=== PATIENT | female | born 1935 | race Caucasian/White ===

== ENCOUNTER → 2023-12-13 11:34 | Outpatient (REF) | payer OTHER, SELFPAY ==
[2023-12-13 13:38] LABS: % Basophils 1.2 % (0-2); % Eosinophils 3.7 % (0-6); % Immature Granulocytes 0.3 % (0-0.5); % Lymphocytes 29.4 % (20.5-51.1); % Monocytes 8.9 % (1.7-9.3); % Neutrophils 56.5 % (42.2-75.2); Absolute Basophils 0.1 10^3/uL (0-0.2); Absolute Eosinophils 0.3 10^3/uL (0-0.7); Absolute Lymphocytes 2.2 10^3/uL (1.2-3.4); Absolute Monocytes 0.7 10^3/uL (0.1-0.6); Absolute Neutrophils 4.3 10^3/uL (1.4-6.5); Hematocrit 40.2 % (37.0-47.0); Mean Corp Hgb Conc. 32.3 g/dL (33.0-37.0); Mean Corpuscular Volume 83.4 fL (81.0-99.0); Mean Platelet Volume 9.5 fL (7.4-10.4); Nucleated Red Blood Cells % 0 %; Platelet Count 275 10^3/uL (130-400); Red Blood Cell Count 4.82 10^6/uL (4.20-5.40); Red Cell Dist. Width 15.3 % (11.5-14.5); White Blood Cell Count 7.6 10^3/uL (4.8-10.8)
[2023-12-13 13:53] LABS: ALT (SGPT) 33 U/L (0-35); AST (SGOT) 34 U/L (14-36); Albumin 4.4 g/dl (3.5-5.0); Alkaline Phosphatase 86 U/L (38-126); Blood Urea Nitrogen 24 mg/dl (7-17); Calcium 9.9 mg/dl (8.4-10.2); Carbon Dioxide 26 mmol/L (22-30); Chloride 100 mmol/L (98-107); Glucose 96 mg/dl (70-99); HDL Cholesterol 76 mg/dl; LDL Cholesterol, Calculated 134 mg/dl; Sodium 133 mmol/L (135-145); Total Bilirubin 0.5 mg/dl (0.2-1.3); Total Cholesterol 229 mg/dl (50-199); Total Protein 7.3 g/dl (6.3-8.2); Triglyceride 99 mg/dl (10-149); Very Low Density Lipoprotein 19 mg/dl (0-30); eGFR 53.85
[2023-12-13 14:21] LABS: TSH Reflex To Free T4 2.01 uIU/ml (0.47-4.68)
== END ==
LOC: OLABWPC 11:34
PROVIDERS: ATTENDING PHYSICIAN Internal Medicine
DX: I10 Essential (primary) hypertension (principal); K21.9 Gastro-esophageal reflux disease without esophagitis; K86.81 Exocrine pancreatic insufficiency; Z85.3 Personal history of malignant neoplasm of breast
CPT/HCPCS: 36415; 80053; 80061; 84443; 85025

== ENCOUNTER 2024-01-08 13:19 | Inpatient (IN) | payer OTHER, SELFPAY ==
[2024-01-05] VITALS (21 sets, daily range): BP systolic 99–161; BP diastolic 59–87; PULSE 75–78; O2SAT 98; BMI 20.7; BMI 20.6
--- NOTE | 2024-01-05 04:06 | ED.GENMED ---
History of Present Illness
<JUAN Freire - Last Filed: 01/05/24 06:38>
General
Chief Complaint: Musculo-Skeletal Complaint
Source: patient and records
Exam Limitations: none
Time Seen by Provider: 01/05/24 03:59
Travel History
Have you had any contact with someone who has COVID-19?: No
Do you have any symptoms of coronavirus? Fever > 100 degrees, chills, cough, shortness of breath, sore throat, loss of taste or smell, muscle aches, or headache?: No
History of Present Illness
History of Present Illness:
87-year-old female from [facility] with history of recurrent right hip dislocations, symptomatic hyponatremia, recurrent falls, prior right hip replacement, dementia, right lower extremity DVT on Xarelto, HTN,
anxiety/depression BIBA with pain in the right hip that occurred just prior to arrival. Pt was on the toilet and reached for toilet paper when she heard a pop in her right hip. Denies fall or trauma to the hip.
Last dislocation was on 08/06/23 which was reduced under moderated sedation. Pt had revision of R hip total arthroplasty on 08/09/[address] Farias.
Past History
<JUAN Freire - Last Filed: 01/05/24 06:38>
Past History
ED Past Medical History: Cancer (Breast), COPD, GERD, HTN, Hypercholesterolemia, Other (Parathyroidectomy) and Other (DVT on Xarelto)
ED Past Surgical History: Gynecological (Bilateral mastectomy) and Orthopedic (Right hip replaced 2007)
Social History
Tobacco: Former smoker
Alcohol: None
Drug: None
Living: shelter
Review of Systems
<JUAN Freire - Last Filed: 01/05/24 06:38>
Review of Systems
Allergies reviewed?: Yes
All Other Systems: ROS reviewed and negative except as documented in HPI and ROS
Constitutional: Reports no symptoms
EENT: Reports no symptoms
Respiratory: Reports no symptoms
Cardiac: Reports no symptoms
ABD/GI: Reports no symptoms
: Reports no symptoms
Musculoskeletal: Reports joint pain
Skin: Reports no symptoms
Neurological: Reports no symptoms
Phy Exam
<JUAN Freire - Last Filed: 01/05/24 06:38>
General Physical Exam
General Presentation: well appearing and no apparent distress
General age: appears stated age
General Skin: warm and dry
General Habitus: normal
General Mental: alert
General Hydration: appears well hydrated
Cardiovascular Exam
Cardiovascular Exam: regular rate/rhythm, no edema, no gallop, no murmur and normal peripheral pulses
Pulmonary Exam
Pulmonary Exam: lungs clear, no respiratory distress, no rales, no crackles, no rhonchi, no wheezing and no cough
Neurological Exam
Neurological Exam: alert and oriented x3
Musculoskeletal Exam
Musculoskeletal Exam: neuro vasc intact and other (No R hip tenderness to palpation. RLE shortened and slightly internally rotated. Pain with range of motion. )
Skin Exam
Skin Exam: normal color and warm/dry
Psychiatric Exam
Psychiatric Exam: normal mood/affect
Course
<JUAN Freire - Last Filed: 01/05/24 06:38>
Orders/Labs/Results
Orders:
Orders
01/05/24 03:51
CR Hip - RT w/wo Pel 2-3 Vw* Urgent
Comment:
Reason For Exam: right leg shortened, prosthetic hip
Include a pelvis x-ray?: Yes
01/05/24 04:35
Propofol [Diprivan] 20 ml .ROUTE .STK-MED
01/05/24 04:58
Hip, Right 1 View [CR Hip - RT without Pel 1 Vw] Urgent
Comment:
Reason For Exam: portable post reduction
01/05/24 05:48
Hip, Right 2-3 Views [CR Hip - RT w/wo Pel 2-3 Vw*] Urgent
Comment:
Reason For Exam: questionable incomplete reduction
Include a pelvis x-ray?: No
01/05/24 06:02
Admit/Transfer Patient As Directed
Co-Sign Provider:
Level of Care: Observation services
Assign to:: Medical/Surgical
Physician / Group: htay
Diagnosis: Right hip prosthetic joint recurrent dislocation
Reason for Hospitalization: Right hip prosthetic joint recurrent dislocation
Acute gait dysfunction
01/05/24 06:04
Code Status As Directed
Resuscitation Status: Full Code
01/05/24 06:21
BMP [Basic Metabolic Panel] IN AM
CBC/No Diff [Complete Blood Count/No Diff] IN AM
Vital Signs
Initial and Last Documented VS:
Initial Vital Signs
Temp Pulse Resp BP Pulse Ox
97.6 F 71 16 161/76 98
01/05/24 03:46 01/05/24 03:46 01/05/24 03:46 01/05/24 03:46 01/05/24 03:46
Last Documented Vital Signs
Temp Pulse Resp BP Pulse Ox
97.6 F 67 12 144/65 100
01/05/24 03:46 01/05/24 05:30 01/05/24 05:30 01/05/24 05:25 01/05/24 05:30
<Deepali Carlson, DO - Last Filed: 01/05/24 06:45>
Orders/Labs/Results
Orders:
Orders
01/05/24 03:51
CR Hip - RT w/wo Pel 2-3 Vw* Urgent
Comment:
Reason For Exam: right leg shortened, prosthetic hip
Include a pelvis x-ray?: Yes
01/05/24 04:35
Propofol [Diprivan] 20 ml .ROUTE .STK-MED
01/05/24 04:58
Hip, Right 1 View [CR Hip - RT without Pel 1 Vw] Urgent
Comment:
Reason For Exam: portable post reduction
01/05/24 05:48
Hip, Right 2-3 Views [CR Hip - RT w/wo Pel 2-3 Vw*] Urgent
Comment:
Reason For Exam: questionable incomplete reduction
Include a pelvis x-ray?: No
01/05/24 06:02
Admit/Transfer Patient As Directed
Co-Sign Provider:
Level of Care: Observation services
Assign to:: Medical/Surgical
Physician / Group: htay
Diagnosis: Right hip prosthetic joint recurrent dislocation
Reason for Hospitalization: Right hip prosthetic joint recurrent dislocation
Acute gait dysfunction
01/05/24 06:04
Code Status As Directed
Resuscitation Status: Full Code
01/05/24 06:21
BMP [Basic Metabolic Panel] IN AM
CBC/No Diff [Complete Blood Count/No Diff] IN AM
Vital Signs
Initial and Last Documented VS:
Initial Vital Signs
Temp Pulse Resp BP Pulse Ox
97.6 F 71 16 161/76 98
01/05/24 03:46 01/05/24 03:46 01/05/24 03:46 01/05/24 03:46 01/05/24 03:46
Last Documented Vital Signs
Temp Pulse Resp BP Pulse Ox
97.6 F 67 12 144/65 100
01/05/24 03:46 01/05/24 05:30 01/05/24 05:30 01/05/24 05:25 01/05/24 05:30
Procedures
<JUAN Freire - Last Filed: 01/05/24 06:38>
Moderate Sedation
ASA Risk Score: Class II
Chart and allergies reviewed: Yes
Consent for anesthesia obtained: Yes
Time out completed (validating right patient & procedure): Yes
Moderate Sedation Start Time(when first medication is given): 04:45
History of difficult intubation: No
Airway free of obstruction: Yes
Patient has a gag reflex: Yes
Patient is able to open mouth: Yes
Patient has no dentures: Yes
Patient has no loose teeth: Yes
Medication administered by Provider during Moderate Sedation: IV Propofol (mg)
Total dose administered: 45
Time drug administered: 04:45
Moderate Sedation Procedure End Time: 04:55
Joint/Fracture Reduction
Right Hip:
Indication for procedure:: prosthetic hip dislocation
Procedure completed by: myself and Dr. Carlson
Consent form signed: Yes
Joint reduced: with anesthesia sedation
Anesthesia/sedation: Moderate sedation
Injury was: closed
Further treatement: needs further treatment (questionable mild subluxation/not complete reduction of femoral head into acetabulum, orthopedics aware)
Post reduction exam: stable
Capillary Refill: normal
Normal distal neurovascular exam?: Yes
<JUAN Freire - Last Filed: 01/05/24 06:38>
MDM/Problems Addressed
Differential Diagnosis Includes:
R hip fracture, R hip dislocation
MDM/Problems Addressed:
88 year old female BIBA with R hip pain.
Chronic conditions affecting care: HTN, COPD, Psychiatric illness (Anxiety) and Cancer
<JAUN Freire - Last Filed: 01/05/24 06:38>
*Critical Care Note
Total Time (30-74mins, 75-104mins- exclusive of procedures): Not Applicable
<Deepali Carlson DO - Last Filed: 01/05/24 06:45>
*Radiology
Radiology exam reviewed: preliminary read by ED provider (Initial x-ray reveals prosthetic right hip dislocation. Postreduction film shows successful reduction, no evidence of fracture)
*Pulse Oximetry
Patient hypoxic: no
*Software Configuration Specialist Interpretation
Rate: normal
Interpretation: normal
Rhythm: sinus
ED Attending Note
<JUAN Freire - Last Filed: 01/05/24 06:38>
-
Portions of this chart may have been created with voice recognition software.� Occasional wrong word or��sound alike� substitutions may have occurred due to the inherent limitations of voice recognition software.
<Deepali Carlson DO - Last Filed: 01/05/24 06:45>
ED Attending Note
Patient seen and examined by attending physician: Yes
I performed the substantive portion of visit, reviewed & personally made and approve the management plan that is documented in note by myself or CHRIS.: Yes
I performed a history and physical exam of patient and discussed management with resident, I reviewed resident's note and agree with documented findings and plan of care.: Yes
ED Attending Note:
This is an 88-year-old woman who resides at a local assisted living facility. She has history of recurrent right prosthetic hip dislocations, most recently August of this year due to recurrent dislocation she underwent prosthetic hip revision this
August by Dr. Farias undergoing ball head exchange as well as constrained liner placement. She has done well postoperatively until tonight when she bent forward while sitting on the toilet and felt a pop and then pain in her right hip. She did
not fall. No head injury. She denies back pain, denies weakness or numbness.
She arrives via EMS.
GENERAL: 88-year-old somewhat frail appearing woman is bright and alert, pleasant, appears in no acute distress.
EYE: anicteric
NECK: Supple, nontender, no meningismus, no significant adenopathy.
ENT: oral mucosa is moist. No rhinorrhea.
CARDIAC: Regular rate and rhythm. no murmur.
LUNGS: Clear breath sounds bilaterally, no acute respiratory distress, no wheezes/rales/rhonchi
ABDOMEN: Soft, nondistended, without focal tenderness, normoactive BS.
NEUROLOGICAL: Alert and oriented x3, no focal neuro deficits.
SKIN: Warm and dry, normal color, skin intact. No rash.
MUSCULOSKELETAL: No C/C/E. peripheral pulses are full and equal b/l. Right lower extremity is internally rotated and shortened with moderate pain about the right hip with attempted range of motion. No palpable tenderness to the hip. There is no
tenderness to the thigh nor knee nor lower leg.
PSYCH: Normal and appropriate interaction.
Concern for prosthetic hip dislocation versus periprosthetic fracture. Will check x-ray.
Patient denies fall or head injury. No indication for CT of the head.
01/05/2024 0459 AM
X-ray reveals periprosthetic hip dislocation.
Hip successfully manually reduced under moderate sedation.
No complications during procedure.
Awaiting postreduction film.
01/05/2024 0531 AM
Postreduction film reveals either successful reduction versus near complete reduction as the femoral head appears to be not completely seated into the acetabulum. No evidence of fracture.
Orthopedics, Dr. Whitney aware and requests additional films/lateral films to further assess.
Patient is awake and alert. Denies pain.
She has been placed in a knee immobilizer.
She resides in independent living at [facility] and upon review of records it seems that patient has a bit of dementia, memory issues and thus frequently forgets to keep knee immobilizer in place, forgets her hip precautions and thus
suffers recurrent/repeated hip dislocations.
As such, for safety will plan to admit to hospitalist service with case management and PT evaluation. She will require close monitoring for safety and at the least half-way level care.
01/05/2024 0644 AM
Lateral films show femoral head adequately lined up within the acetabulum. On the AP film it does continue to show concern for potential minimal subluxation. Patient continues to deny pain.
Orthopedics will evaluate but lateral films and clinical exam are reassuring.
Discharge Plan
Departure
Patient Disposition: Admit
Date of Disposition: 01/05/24
Time of Disposition: 05:41
Admit to: Med/Surg
Admit to doctor: Chayo
Presentation/result/management discussed w/ accepting MD/DO: Hospitalist
Patient with high blood pressure during this ER visit?: No
Condition: Good
Discharge Problem:
Dislocation of internal right hip prosthesis, Ambulatory dysfunction
Interventions
Interventions:
*Risk Screen - Suicide Last Done: 01/05/24 03:46
*General Assessment Last Done: 01/05/24 03:46
*Neglect/Abuse Screening Last Done: 01/05/24 03:46
ED-Musculoskeletal Assessment Last Done: 01/05/24 03:50
--- NOTE | 2024-01-05 04:59 | EDRN ---
right knee immobilizer applied to right leg
--- NOTE | 2024-01-05 05:56 | HPS.HSE ---
Addendum entered and electronically signed by José Domingo MD 01/05/24 06:15:
Addendum:
Will keep NPO till post reduction film is clear by Ortho or radiologist
Original Note:
Family Physician
-
Family Physician: Nelly Gracia
Chief Complaint
-
Rt Hip pain suspect recurrent dislocation
History of Present Illness
87F Res [facility] independent living HX Anxiety/depression, HX recurrent right hip dislocations, symptomatic hyponatremia, recurrent falls, prior right hip replacement, dementia, right lower extremity DVT on Xarelto [facility] pain in the right hip that
occurred just prior to arrival while she was on the toilet and reached for toilet paper when she heard a pop in her right hip.
Denies fall or trauma to the hip.
Medical History
Past Medical History
Past Medical History: Reports Other (Cancer (Breast), COPD, GERD, HTN, Hypercholesterolemia, Other (Parathyroidectomy) and Other (DVT on Xarelto))
Additional Past Medical History:
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
Chronic right lower extremity deep vein thrombosis.
HX Rectal bleeding-hemorrhoids.
HX Hyponatremia.
Chronic anemia.
Hypertension.
HX breast cancer.
Chronic obstructive pulmonary disease.
Anxiety and depression.
Gastroesophageal reflux disease.
Eczema.
Past Surgical History: Reports Orthopedic (revision of R hip total arthroplasty on 08/09/[address] Farias. ) and Other ( bilateral mastectomy)
Social History
Unable to obtain full social history at this time due to: Dementia
Tobacco: Non-smoker
Alcohol: None
Drug: None
[facility]
Family History
Family History: Not pertinent
Allergies / Home Medications
Allergies reflects when Allergies were last updated in [facility].
Home Medications with original date entered in [facility]
Allergy/Medication List:
Allergies
Allergy/AdvReac Type Severity Reaction Status Date / Time
No Known Allergies Allergy Verified 01/05/24 03:55
Home Medications
multivitamin 1 tab PO DAILY Supplement 08/04/11
amlodipine 2.5 mg tablet 2.5 mg PO DAILY Blood Pressure 04/12/23
letrozole 2.5 mg tablet 2.5 mg PO DAILY history of breast cancer 04/12/23
wrkqvn-ajrehxnb-nrzfpxy 15,000-47,000-63,000 unit capsule,delayed rel (Zenpep) 3 cap PO MEALS Gastrointestinal Issue 04/12/23
mirtazapine 15 mg tablet 15 mg PO HS depression 04/12/23
acetaminophen 325 mg tablet 650 mg PO Q6HPRN PRN mild pain/temp at or above 100F 04/27/23
guaifenesin 100 mg/5 mL oral liquid 200 mg PO Q4H PRN cough 05/23/23
sertraline 50 mg tablet 50 mg PO DAILY Mental Health/Anxiety 07/04/23
calcium carbonate 600 mg-vitamin D3 10 mcg (400 unit) capsule 1 cap PO BID Supplement 07/19/23
clonazepam 0.5 mg tablet (Klonopin) 0.5 mg PO BID anxiety #6 tabs 08/15/23
docusate sodium 100 mg capsule 100 mg PO BID Constipation #30 caps 08/15/23
furosemide 20 mg tablet (Lasix) 10 mg (1/2 x 20 mg) PO DAILY SIADH #30 tabs 08/15/23
rivaroxaban 10 mg tablet (Xarelto) 10 mg PO DAILY Blood clot prevention/tx #30 tabs 08/15/23
guaifenesin 600 mg tablet, extended release 12 hr (Mucinex) 600 mg PO Q12H PRN congestion 01/05/24
phenylephrine 0.25 %-mineral oil 14 %-petrolatm 74.9 % rectal ointment (Preparation H) 1 applic GA [facility] PRN hemorrhoids 01/05/24
Review of Systems
-
Constitutional: Reports No Symptoms
EENT: Reports No Symptoms
Respiratory: Reports No Symptoms
Cardiac: Reports No Symptoms
Abdomen/GI: Reports No Symptoms
: Reports No Symptoms
Musculoskeletal: Reports See HPI
Skin: Reports No Symptoms
Neurological: Reports No Symptoms
Endocrine: Reports No Symptoms
Hematologic/Lymphatic: Reports No Symptoms
Psych: Reports No Symptoms
Physical Exam
Vital Signs
Vital Signs
Temp Pulse Resp BP Pulse Ox
97.6 F 67 12 144/65 100
01/05/24 03:46 01/05/24 05:30 01/05/24 05:30 01/05/24 05:25 01/05/24 05:30
Physical Exam
General: Well Developed and No Apparent Distress
HEENT: NormoCephalic, Anicteric and Moist mucous membranes
Respiratory: Clear
Cardiac: S1/S2 and Regular Rhythm; No Gallop
Breast: Deferred by me
GI: Soft, Non Tender, Non Distended and Normal Bowel Sounds
Rectal: Deferred by Provider
Genito-urinary: Deferred by me
Musculoskeletal: Other (No R hip tenderness to palpation. RLE shortened and slightly internally rotated. Pain with range of motion prior to reduction )
Skin: Warm and Dry
Psych: Calm
Laboratory Results
-
pending AM labs
Data Reviewed
-
Diagnostic Radiology: Discussed with Physician
Old Records: Reviewed
Impression/Plan
-
Pending admission labs
ASSESSMENT & PLAN
Right hip prosthetic joint recurrent dislocation s/p reduction under moderate sedation at ER : No evidence of fracture.
Postreduction film partial reduction of prosthetic hip ? per ortho
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
Last dislocation was on 08/06/23 which was reduced under moderated sedation.
HX revision of R hip total arthroplasty on 08/09/[address] Farias.
- [facility]
- Ortho aware prior to reduction - f/u repeat post reduction film - will consult
- PT/OT/ CRM consult for safe disposition
HX right lower extremity DVT
- on Xarelto
HX Hyponatremia
- check BMP
- Held Lasix
HX Anemia of chronic dz
HX Essential HTN on Amlodipine
Elevated LFT-Aug 07-normalized on 08/09/2023
HX breast cancer-history of bilateral mastectomy on Letrazole
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
COPD, Ex smoker
HLD
Dementia w/o behavioral problems
Anxiety/depression on Clonazepam amd sertraline
GERD
Arthritis
DVT Px: on chr Xarelto
Code: Full code
Obs [place]
[2024-01-05 06:48] LABS: Hematocrit 35.8 % (37.0-47.0); Mean Corp Hgb Conc. 33.5 g/dL (33.0-37.0); Mean Corpuscular Hgb 26.8 pg (27.0-31.0); Mean Corpuscular Volume 80.1 fL (81.0-99.0); Mean Platelet Volume 9.7 fL (7.4-10.4); Platelet Count 249 10^3/uL (130-400); Red Blood Cell Count 4.47 10^6/uL (4.20-5.40); Red Cell Dist. Width 15.2 % (11.5-14.5); White Blood Cell Count 6.9 10^3/uL (4.8-10.8)
[2024-01-05 07:04] LABS: Blood Urea Nitrogen 29 mg/dl (7-17); Calcium 9.6 mg/dl (8.4-10.2); Carbon Dioxide 27 mmol/L (22-30); Chloride 99 mmol/L (98-107); Estimated Creatinine Clearance 37 ml/min; Glucose 82 mg/dl (70-99); Potassium 4.4 mmol/L (3.5-5.1); Sodium 133 mmol/L (135-145); eGFR > 60.00
[2024-01-05] MEDS: ZOLOFT 50 MG PO (11:48)
[2024-01-05] MEDS: THERAGRAN 1 TABLET PO (11:48)
[2024-01-05] MEDS: OSCAL 500 + D 500 MG PO ×2 (11:48→20:31)
[2024-01-05] MEDS: ZENPEP DELAYED RELEASE CAPSULE 3 CAPSULE PO ×2 (11:49→16:35)
[2024-01-05] MEDS: FEMARA 2.5 MG PO (11:49)
[2024-01-05] MEDS: KLONOPIN 0.5 MG PO ×2 (11:49→20:31)
[2024-01-05] MEDS: TYLENOL 650 MG PO ×3 (11:49→20:31)
[2024-01-05] MEDS: COLACE 100 MG PO ×2 (11:49→20:30)
[2024-01-05] MEDS: XARELTO 10 MG PO (11:49)
[2024-01-05] MEDS: NORVASC 2.5 MG PO (11:50)
[2024-01-05] MEDS: TYLENOL PO (12:04)
[2024-01-05] MEDS: ZENPEP DELAYED RELEASE CAPSULE PO (12:04)
--- NOTE | 2024-01-05 12:11 | CON.ORTHO ---
Consultation
-
Date/Time Consultation Requested: 01/05/2024
Date/Time Consultation Performed: 01/05/2024
Performing Provider: Lashell Jauregui PA-C, for Dr. Whitney
Reason for Consultation: Right hip dislocation s/p [place]
Consultation - Orthopedics
History
HPI: This is an 88-year-old female who presented to [facility] earlier this morning after sustaining a right hip dislocation. She did recently undergo a right hip revision with Dr. Farias on 08/04/2024 for a right hip revision to include a
full head/liner exchange to a constrained liner. She had been doing well with physical therapy and has been ambulating with the assistance of a walker per her 2 sons. She reports she was on the commode earlier this morning when some toilet paper
fell on the floor. She bent down and twisted to grab what was on the floor, and felt a pop in her right hip. Somehow, she was able to get off the commode and ambulate to her bed using the walker. She was brought in to [facility] via EMS
and x-rays demonstrated a dislocation of her right hip components. Reduction was performed with sedation in the ED. Postreduction x-rays demonstrated alignment to be better, however, full closed reduction with the constrained liner in place is not
possible. Our orthopedic specialty was consulted and to discuss definitive management of her dislocation going forward. Currently she is in a knee immobilizer and denies any pain in her right hip.
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
Past surgical history: Right total hip arthroplasty, revision right total hip arthroplasty, bilateral mastectomy.
Social history: Denies tobacco or alcohol use. Lives in independent living at [facility].
Family history: Noncontributory.
Review of systems: Unable to obtain secondary to slight dementia status
Allergies / Home Medications
Allergy/AdvReac Type Severity Reaction Status Date / Time
No Known Allergies Allergy Verified 01/05/24 03:55
�Medication �Instructions �Recorded
multivitamin 1 tab PO DAILY Supplement 08/04/11
amlodipine 2.5 mg tablet 2.5 mg PO DAILY Blood Pressure 04/12/23
letrozole 2.5 mg tablet 2.5 mg PO DAILY history of breast 04/12/23
cancer
wygwac-iskjltfm-vrwtuyc 3 cap PO MEALS Gastrointestinal 04/12/23
15,000-47,000-63,000 unit Issue
capsule,delayed rel (Zenpep)
mirtazapine 15 mg tablet 15 mg PO HS depression 04/12/23
acetaminophen 325 mg tablet 650 mg PO Q6HPRN PRN mild 04/27/23
pain/temp at or above 100F
guaifenesin 100 mg/5 mL oral liquid 200 mg PO Q4H PRN cough 05/23/23
sertraline 50 mg tablet 50 mg PO DAILY Mental 07/04/23
Health/Anxiety
calcium carbonate 600 mg-vitamin 1 cap PO BID Supplement 07/19/23
D3 10 mcg (400 unit) capsule
clonazepam 0.5 mg tablet (Klonopin) 0.5 mg PO BID anxiety #6 tabs 08/15/23
docusate sodium 100 mg capsule 100 mg PO BID Constipation #30 caps 08/15/23
furosemide 20 mg tablet (Lasix) 10 mg (1/2 x 20 mg) PO DAILY SIADH 08/15/23
#30 tabs
rivaroxaban 10 mg tablet (Xarelto) 10 mg PO DAILY Blood clot 08/15/23
prevention/tx #30 tabs
guaifenesin 600 mg tablet, 600 mg PO Q12H PRN congestion 01/05/24
extended release 12 hr (Mucinex)
phenylephrine 0.25 %-mineral oil 1 applic MS [facility] PRN hemorrhoids 01/05/24
14 %-petrolatm 74.9 % rectal
ointment (Preparation H)
Vital Signs / Lab Results
Temp Pulse Resp BP Pulse Ox
98.2 F 80 14 141/84 97
01/05/24 09:17 01/05/24 09:17 01/05/24 09:17 01/05/24 09:17 01/05/24 09:17
01/05/24 06:21
01/05/24 06:21
Physical examination:
General: Well-developed, well-nourished female in no acute distress at rest. Alert to self.
HEENT: Atraumatic, normocephalic, neck supple.
Lungs: Nonlabored breathing on room air. No audible wheezing.
Heart: Regular rate and rhythm.
Right hip: No tenderness to palpation. Knee immobilizer in place, range of motion not tested. Calf is soft and nontender palpation. Neurovascular intact distally.
Radiographic studies:
X-rays of the right hip upon arrival to [facility] ED showed dislocation of right hip prosthesis.
Postreduction x-rays of the right hip show improved alignment, however, complete reduction not obtained secondary to constrained liner
Assessment / Plan
Assessment: Right hip dislocation status post right total hip arthroplasty.
Plan: Case was discussed with Dr. Farias. Patient's sons were present in room during exam. We had a very lengthy discussion in regards to treatment recommendations going forward, to include both nonoperative and operative approaches.
Nonoperatively, the patient can continue with activities to tolerance, however, her hip will dislocate as soon as any motion is attempted. If pain is well-controlled, she may live in a chronically dislocated state with activity modification and
weightbearing limitations going forward. She would be able to touchdown weight-bear for activities, weight-bear as tolerated for transfers, and perform activities to tolerance. Alternatively, if she is not able to tolerate the pain or ends up with
a nerve palsy secondary to compression of the sciatic notch, surgical intervention in the form of a Girdlestone procedure would be the surgical recommendation. At this point, a revision to change out a constrained liner would not be a definitive
option or recommendation going forward. Since she continues to dislocate, has dementia, and abductor insufficiency, her breast surgical option would be a Girdlestone procedure. The surgery was explained in detail along with the postoperative
expectations. She would have a shortened limb as well as weightbearing restrictions. With either option, she will either be relying on a walker or wheelchair to get around. For now, her sons would like to attempt nonsurgical intervention and see
how she does with physical therapy while inpatient. If she is unable to tolerate the chronic dislocated state, Dr. Farias would be able to proceed with the Girdlestone procedure on Sunday. If able to tolerate the limitations, she could be
transitioned back to her independent living facility and follow-up with our office outpatient. I will continue to follow her while inpatient.
--- NOTE | 2024-01-05 12:24 | W.PN.HOSP.TC ---
Today's Communication/Plan
-
Physical therapy
Assessment / Plan
Assessment / Plan
Right hip prosthetic joint recurrent dislocation s/p reduction under moderate sedation at ER : No evidence of fracture.
Postreduction film partial reduction of prosthetic hip ? per ortho
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
Last dislocation was on 08/06/23 which was reduced under moderated sedation.
HX revision of R hip total arthroplasty on 08/09/[address] Farias.
01/04
- Ortho evaluated the patient at bedside and discussed with family
Discussed risk and benefit of surgical intervention
And plan for no surgical intervention
In the meantime will be evaluated by physical therapy
- PT/OT/ CRM consult for safe disposition
HX right lower extremity DVT
- on Xarelto
Mild Hyponatremia
- follow BMP
HX Anemia of chronic dz
HX Essential HTN on Amlodipine
Elevated LFT-Aug 07-normalized on 08/09/2023
HX breast cancer-history of bilateral mastectomy on Letrazole
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
COPD, Ex smoker
HLD
Dementia w/o behavioral problems
Anxiety/depression on Clonazepam amd sertraline
GERD
Arthritis
DVT Px: on chr Xarelto
Code: Full code
Obs MS
Anticipated Discharge: > 48 hours
Subjective/Interval History
-
Date of Service: January 05, 2024
Patient seen and examined at bedside, family at bedside, denies chest pain or shortness of breath.
Ortho evaluated the patient at bedside and discussed with family
Discussed risk and benefit of surgical intervention
And plan for no surgical intervention
In the meantime will be evaluated by physical therapy
ordered diet and physical therapy consult.
Objective Data
-
Labs:
Laboratory Results
01/05/24
06:21
WBC 6.9
Hgb 12.0
Hct 35.8 L
Plt Count 249
Sodium 133 L
Potassium 4.4
Chloride 99
Carbon Dioxide 27
BUN 29 H
Creatinine 0.9
Glucose 82
Calcium 9.6
Vital Signs:
Vital Signs
Temp Pulse Resp BP Pulse Ox
98.2 F 80 14 141/84 97
01/05/24 09:17 01/05/24 09:17 01/05/24 09:17 01/05/24 09:17 01/05/24 09:17
Physical Exam
-
General: Well Developed and No Apparent Distress
HEENT: Normocephalic, Atraumatic and Moist Mucous Membranes
Respiratory: Clear to Auscultation
Cardiac: Regular Rhythm and S1/S2; Negative Murmur, Rub or Gallop
GI: Soft, Nontender, Nondistended and Normal Bowel Sounds; Negative Organomegaly
Rectal: Deferred by Provider
Musculoskeletal: No Cyanosis, No Edema and Other ( right hip limitation of movement)
Skin: Negative Rash
Neuro: Nonfocal/Grossly Intact
Psych: Apparent Dementia
[2024-01-05] MEDS: SENOKOT PO (20:31)
[2024-01-05] MEDS: REMERON 15 MG PO (21:00)
[2024-01-06] MEDS: TYLENOL PO ×3 (00:14→23:53)
[2024-01-06 06:40] LABS: Blood Urea Nitrogen 28 mg/dl (7-17); Calcium 9.3 mg/dl (8.4-10.2); Carbon Dioxide 25 mmol/L (22-30); Chloride 100 mmol/L (98-107); Estimated Creatinine Clearance 33 ml/min; Glucose 76 mg/dl (70-99); Potassium 4.2 mmol/L (3.5-5.1); Sodium 131 mmol/L (135-145); eGFR 53.85
[2024-01-06] MEDS: ZENPEP DELAYED RELEASE CAPSULE 3 CAPSULE PO ×3 (07:45→17:17)
[2024-01-06] MEDS: FEMARA 2.5 MG PO (07:45)
[2024-01-06] MEDS: COLACE 100 MG PO ×2 (07:46→20:09)
[2024-01-06] MEDS: OSCAL 500 + D 500 MG PO ×2 (07:46→20:09)
[2024-01-06] MEDS: XARELTO 10 MG PO (07:46)
[2024-01-06] MEDS: KLONOPIN 0.5 MG PO ×2 (07:47→20:09)
[2024-01-06] MEDS: NORVASC 2.5 MG PO (07:47)
[2024-01-06] MEDS: TYLENOL 650 MG PO ×4 (07:47→20:09)
[2024-01-06] MEDS: THERAGRAN 1 TABLET PO (07:47)
[2024-01-06] MEDS: SENOKOT 17.1999999999999993 MG PO ×2 (07:48→20:09)
[2024-01-06] MEDS: ZOLOFT 50 MG PO (07:48)
[2024-01-06 08:17] VITALS: BP 108/66
--- NOTE | 2024-01-06 11:24 | W.PN.UPDATE ---
Update Note
Progress Note Update
Patient resting comfortably in bed on my arrival. Knee immobilizer was still in place, so this was removed by myself and PT. Her son arrived as we were removing this. Family has elected to proceed with non surgical intervention at this time. She
may continue with TTWB with walker for her daily activity and WBAT for transfers. She will likely need a rehab stay to help her manage these modifications prior to returning to assisted living. She does not need to follow hip precautions. I will
continue to follow her while inpatient and see how she does with PT today.
--- NOTE | 2024-01-06 12:02 | W.PN.HOSP.TC ---
Today's Communication/Plan
-
pain control
TTWB per Ortho
SNF planning
Assessment / Plan
Assessment / Plan
Assessment:
Right hip prosthetic joint recurrent dislocation s/p reduction under moderate sedation at ER : No evidence of fracture.
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
HX revision of R hip total arthroplasty on 08/09/[address] Farias.
- Postreduction film partial reduction of prosthetic hip ? per ortho
- TTWB and plan for SNF per Ortho/PT
- Family would like to avoid surgery (Girdlestone procedure) and be conservative at this time.
HX right lower extremity DVT
- on Xarelto
Mild Hyponatremia
- follow BMP
HX Anemia of chronic dz
HX Essential HTN on Amlodipine
Elevated LFT-Aug 07-normalized on 08/09/2023
HX breast cancer-history of bilateral mastectomy on Letrazole
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
COPD, Ex smoker
HLD
Dementia w/o behavioral problems
Anxiety/depression on Clonazepam amd sertraline
GERD
Arthritis
DVT Px: on chr Xarelto
Code: Full code
Obs MS
Anticipated Discharge: 24 - 48 hours
Subjective/Interval History
-
Date of Service: January 06, 2024
knee immobilizer removed
doing ok sitting in chair; for touch toe weight bearing per ortho
Objective Data
-
Labs:
Laboratory Results
01/06/24
05:43
Sodium 131 L
Potassium 4.2
Chloride 100
Carbon Dioxide 25
BUN 28 H
Creatinine 1.0
Glucose 76
Calcium 9.3
Vital Signs:
Vital Signs
Temp Pulse Resp BP Pulse Ox
97.5 F 75 16 108/66 98
01/06/24 08:17 01/06/24 08:17 01/06/24 08:17 01/06/24 08:17 01/06/24 08:17
I&O
01/05/24 01/06/24 01/07/24
06:59 06:59 06:59
Intake Total 960 / 960
Balance 960 / 960
Physical Exam
-
General: No Apparent Distress
HEENT: Normocephalic and Atraumatic
Respiratory: Negative Wheezes
Cardiac: Regular Rhythm and S1/S2
GI: Soft
Genito-urinary: No Costovertebral Tender
Musculoskeletal: Other (No tenderness to palpation. Knee immobilizer in place, range of motion not tested. Calf is soft and nontender palpation. Neurovascular intact distally.)
Psych: Calm
Data Reviewed
-
Total Time Spent with Patient (in minutes): 45
Labs: Labs Reviewed by me
[2024-01-06 15:45] VITALS: BP 119/79
--- NOTE | 2024-01-06 18:26 | CM ---
met with patient and her dedra sadia t bedside.patient lives in [facility] at [facility].she amb with a rw with A,needs A with bathing/grooming.her pcp is dipika coffey at [facility].facility supplies her meds.
patiet with a hx of brest ca,copd,r ny,revision of r ny is adm with r hip fracture.pt was eval by ortho and family has chosen non operative management of fx.she was seen by therapy who recommended snf placement. i have placed referral to [facility] in
[place]/careport.patient is medically ready for snf rehab per attending.
[2024-01-06] MEDS: REMERON 15 MG PO (21:12)
[2024-01-06 23:15] VITALS: BP 126/67
[2024-01-07] MEDS: TYLENOL 650 MG PO (04:12)
[2024-01-07 07:18] LABS: Blood Urea Nitrogen 23 mg/dl (7-17); Calcium 8.9 mg/dl (8.4-10.2); Carbon Dioxide 26 mmol/L (22-30); Chloride 101 mmol/L (98-107); Estimated Creatinine Clearance 36 ml/min; Glucose 84 mg/dl (70-99); Potassium 4.2 mmol/L (3.5-5.1); Sodium 131 mmol/L (135-145); eGFR > 60.00
[2024-01-07 07:45] VITALS: BP 122/63
[2024-01-07] MEDS: OSCAL 500 + D 500 MG PO ×2 (08:26→20:40)
[2024-01-07] MEDS: SENOKOT 17.1999999999999993 MG PO ×2 (08:26→20:40)
[2024-01-07] MEDS: XARELTO 10 MG PO (08:26)
[2024-01-07] MEDS: ZENPEP DELAYED RELEASE CAPSULE 3 CAPSULE PO ×3 (08:26→16:37)
[2024-01-07] MEDS: NORVASC 2.5 MG PO (08:26)
[2024-01-07] MEDS: COLACE 100 MG PO ×2 (08:26→20:40)
[2024-01-07] MEDS: FEMARA 2.5 MG PO (08:26)
[2024-01-07] MEDS: TYLENOL 1000 MG PO ×3 (08:26→21:07)
[2024-01-07] MEDS: ZOLOFT 50 MG PO (08:26)
[2024-01-07] MEDS: THERAGRAN 1 TABLET PO (08:26)
[2024-01-07] MEDS: KLONOPIN 0.5 MG PO ×2 (08:27→20:40)
[2024-01-07 09:30] VITALS: BP 127/62; PULSE 75
--- NOTE | 2024-01-07 10:19 | W.PN.HOSP.TC ---
Today's Communication/Plan
-
dc planning
Assessment / Plan
Assessment / Plan
Physical Exam
-
General: No Apparent Distress
HEENT: Normocephalic and Atraumatic
Respiratory: Negative Wheezes
Cardiac: Regular Rhythm and S1/S2
GI: Soft
Genito-urinary: No Costovertebral Tender
Musculoskeletal: Other (No tenderness to palpation. Knee immobilizer in place, range of motion not tested. Calf is soft and nontender palpation. Neurovascular intact distally.)
neurology: followed commands, awake, could not remember the place.
Psych: Calm
Assessment:
Right hip prosthetic joint recurrent dislocation s/p reduction under moderate sedation at ER : No evidence of fracture.
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
HX revision of R hip total arthroplasty on 08/09/[address] Farias.
- Postreduction film partial reduction of prosthetic hip ? per ortho
- TTWB and plan for SNF per Ortho/PT
- Family would like to avoid surgery (Girdlestone procedure) and be conservative at this time.
HX right lower extremity DVT
- on Xarelto
# Hyponatremia
HX Anemia of chronic dz
HX Essential HTN on Amlodipine
Elevated LFT-Aug 07-normalized on 08/09/2023
HX breast cancer-history of bilateral mastectomy on Letrazole
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
COPD, Ex smoker
HLD
Dementia w/o behavioral problems
Anxiety/depression on Clonazepam amd sertraline
GERD
Arthritis
DVT Px: on chr Xarelto
Code: Full code
Obs MS
Total time spent to see the patient, examine the patient on the floor, review data and lab results, discuss treatment plan with patient, nursing staff around 45 minutes
Anticipated Discharge: Within 24 hours
Subjective/Interval History
-
Date of Service: January 07, 2024
No pain issues
No chest pain or sob
reports discomfort in her body but could not localize it
Objective Data
-
Labs:
Laboratory Results
01/07/24
06:29
Sodium 131 L
Potassium 4.2
Chloride 101
Carbon Dioxide 26
BUN 23 H
Creatinine 0.9
Glucose 84
Calcium 8.9
Vital Signs:
Vital Signs
Temp Pulse Resp BP Pulse Ox
98.2 F 78 17 122/63 97
01/07/24 07:45 01/07/24 07:45 01/07/24 07:45 01/07/24 08:26 01/07/24 08:00
I&O
01/06/24 01/07/24 01/08/24
06:59 06:59 06:59
Intake Total 960 / 960 840 / 840
Balance 960 / 960 840 / 840
--- NOTE | 2024-01-07 11:22 | W.PN.UPDATE ---
Update Note
Progress Note Update
Patient resting comfortably in bedside chair awaiting lunch on my arrival.
Reports some soreness in the right hip with palpation, otherwise denies any pain at rest.
Continue with PT/OT as tolerated.
TTWB with walker for activities, WBAT for transfers.
Appreciate case management's efforts in d/c planning - will likely benefit from rehab prior to returning to assisted living.
Will continue to follow.
[2024-01-07 15:41] VITALS: BP 124/67
[2024-01-07] MEDS: REMERON 15 MG PO (21:07)
[2024-01-07 23:25] VITALS: BP 143/76
[2024-01-08 05:56] LABS: Hematocrit 35.5 % (37.0-47.0); Hemoglobin 11.8 g/dL (12.0-16.0); Mean Corp Hgb Conc. 33.2 g/dL (33.0-37.0); Mean Corpuscular Hgb 27.3 pg (27.0-31.0); Mean Corpuscular Volume 82.2 fL (81.0-99.0); Platelet Count 223 10^3/uL (130-400); Red Blood Cell Count 4.32 10^6/uL (4.20-5.40); Red Cell Dist. Width 15.1 % (11.5-14.5); White Blood Cell Count 10.7 10^3/uL (4.8-10.8)
[2024-01-08 07:02] LABS: Blood Urea Nitrogen 26 mg/dl (7-17); Calcium 9.3 mg/dl (8.4-10.2); Carbon Dioxide 25 mmol/L (22-30); Chloride 99 mmol/L (98-107); Estimated Creatinine Clearance 33 ml/min; Glucose 77 mg/dl (70-99); Potassium 4.5 mmol/L (3.5-5.1); Sodium 130 mmol/L (135-145); eGFR 53.85
--- NOTE | 2024-01-08 07:29 | W.PN.UPDATE ---
Update Note
Progress Note Update
Patient resting comfortably in bed this morning.
Reports no pain in the right hip with palpation, no pain at rest either
Continue with PT/OT as tolerated.
TTWB with walker for activities, WBAT for transfers.
Appreciate case management's efforts in d/c planning - will likely benefit from rehab prior to returning to assisted living.
Will continue to follow.
[2024-01-08 07:48] VITALS: BP 136/56
[2024-01-08] MEDS: TYLENOL 1000 MG PO ×3 (07:49→21:24)
[2024-01-08] MEDS: KLONOPIN 0.5 MG PO ×2 (07:49→19:14)
[2024-01-08] MEDS: NORVASC 2.5 MG PO (07:49)
[2024-01-08] MEDS: SENOKOT 17.1999999999999993 MG PO (07:49)
[2024-01-08] MEDS: ZENPEP DELAYED RELEASE CAPSULE 3 CAPSULE PO ×3 (07:49→16:41)
[2024-01-08] MEDS: OSCAL 500 + D 500 MG PO ×2 (07:49→19:14)
[2024-01-08] MEDS: FEMARA 2.5 MG PO (07:49)
[2024-01-08] MEDS: XARELTO 10 MG PO (07:49)
[2024-01-08] MEDS: THERAGRAN 1 TABLET PO (07:49)
[2024-01-08] MEDS: COLACE 100 MG PO (07:49)
[2024-01-08] MEDS: ZOLOFT 50 MG PO (07:50)
--- NOTE | 2024-01-08 10:10 | W.PN.HOSP.TC ---
Addendum entered and electronically signed by Rigoberto Reeder MD 01/08/24 10:17:
Addendum
Acute blood loss anemia, mild.
# Age-related osteoporosis with hx of fracture .
Original Note:
Today's Communication/Plan
-
dc
Assessment / Plan
Assessment / Plan
Physical Exam
-
General: No Apparent Distress
HEENT: Normocephalic and Atraumatic
Respiratory: Negative Wheezes
Cardiac: Regular Rhythm and S1/S2
GI: Soft
Genito-urinary: No Costovertebral Tender
Musculoskeletal: Other (No tenderness to palpation. Knee immobilizer in place, range of motion not tested. Calf is soft and nontender palpation. Neurovascular intact distally.)
neurology: followed commands, awake, could not remember the place.
Psych: Calm
Assessment:
Right hip prosthetic joint recurrent dislocation s/p reduction under moderate sedation at ER : No evidence of fracture.
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
HX revision of R hip total arthroplasty on 08/09/[address] Farias.
- Postreduction film partial reduction of prosthetic hip ? per ortho
- TTWB and plan for SNF per Ortho/PT
- Family would like to avoid surgery (Girdlestone procedure) and be conservative at this time.
HX right lower extremity DVT
- on Xarelto
# Hyponatremia
HX Anemia of chronic dz
HX Essential HTN on Amlodipine
Elevated LFT-Aug 07-normalized on 08/09/2023
HX breast cancer-history of bilateral mastectomy on Letrazole
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
COPD, Ex smoker
HLD
Dementia w/o behavioral problems
Anxiety/depression on Clonazepam amd sertraline
GERD
Arthritis
DVT Px: on chr Xarelto
Code: Full code
Obs MS
Total discharge time spent to see the patient, examine the patient on the floor, review data and lab results, discuss treatment plan with patient, nursing staff around 65 minutes
Anticipated Discharge: Today
Subjective/Interval History
-
Date of Service: January 08, 2024
no complaints
Objective Data
-
Labs:
Laboratory Results
01/08/24
05:30
WBC 10.7
Hgb 11.8 L
Hct 35.5 L
Plt Count 223
Sodium 130 L
Potassium 4.5
Chloride 99
Carbon Dioxide 25
BUN 26 H
Creatinine 1.0
Glucose 77
Calcium 9.3
Vital Signs:
Vital Signs
Temp Pulse Resp BP Pulse Ox
98.3 F 80 18 136/56 97
01/08/24 07:48 01/08/24 07:48 01/08/24 07:48 01/08/24 07:49 01/08/24 07:55
I&O
01/07/24 01/08/24 01/09/24
06:59 06:59 06:59
Intake Total 840 / 840 600 / 600
Balance 840 / 840 600 / 600
[2024-01-08 10:39] VITALS: BP 123/65; PULSE 82
[2024-01-08 10:40] VITALS: BP 123/65; PULSE 82
--- NOTE | 2024-01-08 12:38 | CM ---
CM reviewed chart and pt ready for dc
Per [facility] admissions, bed not available until 01/09
Bedside meeting with pt who was upset that rehab not available at SNF
In agreement with additional referrals
Referrals sent to [facility], [facility], [facility]- all pending
Pt will require auth
Update to son via phone
Bed at [facility] on hold for patient
Will need to alert [facility] if pt goes to other SNF
Discharge Disposition- SNF pending auth
[2024-01-08 15:19] VITALS: BP 130/57
[2024-01-08] MEDS: SENOKOT PO (19:14)
[2024-01-08] MEDS: COLACE PO (19:14)
[2024-01-08] MEDS: REMERON 15 MG PO (21:24)
[2024-01-08 23:00] VITALS: BP 135/66
[2024-01-09 07:30] VITALS: BP 125/63
--- NOTE | 2024-01-09 07:37 | W.PN.UPDATE ---
Update Note
Progress Note Update
Ms. Grant is resting comfortably in bed this morning. She denies any pain in the hip at present. She has no questions or concerns at this time.
Directed exam of the right hip reveals no tenderness to palpation about the hip. Thigh soft and compressible. Calf soft and nontender. Patient able to wiggle toes, plantar and dorsiflex ankle. NVID.
--Continue with PT/OT as tolerated.
--TTWB with walker for activities, WBAT for transfers.
--Appreciate case management's efforts in d/c planning.
--Will continue to follow.
[2024-01-09] MEDS: FEMARA 2.5 MG PO (08:09)
[2024-01-09] MEDS: ZENPEP DELAYED RELEASE CAPSULE 3 CAPSULE PO ×2 (08:09→11:15)
[2024-01-09] MEDS: OSCAL 500 + D 500 MG PO (08:10)
[2024-01-09] MEDS: KLONOPIN 0.5 MG PO (08:10)
[2024-01-09] MEDS: TYLENOL 1000 MG PO ×2 (08:10→15:06)
[2024-01-09] MEDS: XARELTO 10 MG PO (08:10)
[2024-01-09] MEDS: SENOKOT 17.1999999999999993 MG PO (08:10)
[2024-01-09] MEDS: COLACE 100 MG PO (08:10)
[2024-01-09] MEDS: THERAGRAN 1 TABLET PO (08:10)
[2024-01-09] MEDS: NORVASC 2.5 MG PO (08:10)
[2024-01-09] MEDS: ZOLOFT 50 MG PO (08:10)
[2024-01-09 09:30] VITALS: BP 102/65; PULSE 77; O2SAT 98
[2024-01-09 10:34] VITALS: BP 106/61; PULSE 79
--- NOTE | 2024-01-09 11:29 | W.PN.HOSP.TC ---
Addendum entered and electronically signed by Rigoberto Reeder MD 01/09/24 13:20:
Addendum
d/w rn case mgr
a bed is available
will do dc and paperwork
Total discharge time spent to see the patient, examine the patient on the floor, review data and lab results, discuss discharge plan with patient, rn case mgr, nursing staff around 65 minutes
Original Note:
Today's Communication/Plan
-
dc
Assessment / Plan
Assessment / Plan
Physical Exam
-
General: No Apparent Distress
HEENT: Normocephalic and Atraumatic
Respiratory: Negative Wheezes
Cardiac: Regular Rhythm and S1/S2
GI: Soft
Genito-urinary: No Costovertebral Tender
Musculoskeletal: Other (No tenderness to palpation. Knee immobilizer in place, range of motion not tested. Calf is soft and nontender palpation. Neurovascular intact distally.)
neurology: followed commands, awake, could not remember the place.
Psych: Calm
Assessment:
Right hip prosthetic joint recurrent dislocation s/p reduction under moderate sedation at ER : No evidence of fracture.
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
HX revision of R hip total arthroplasty on 08/09/[address] Farias.
- Postreduction film partial reduction of prosthetic hip ? per ortho
- TTWB and plan for SNF per Ortho/PT
- Family would like to avoid surgery (Girdlestone procedure) and be conservative at this time.
HX right lower extremity DVT
- on Xarelto
# Hyponatremia
HX Anemia of chronic dz
HX Essential HTN on Amlodipine
Elevated LFT-Aug 07-normalized on 08/09/2023
HX breast cancer-history of bilateral mastectomy on Letrazole
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
COPD, Ex smoker
HLD
Dementia w/o behavioral problems
Anxiety/depression on Clonazepam amd sertraline
GERD
Arthritis
DVT Px: on chr Xarelto
Code: Full code
Obs MS
Total time spent to see the patient, examine the patient on the floor, review data and lab results, discuss treatment plan with patient, nursing staff around 45 minutes
Anticipated Discharge: Today
Subjective/Interval History
-
Date of Service: January 09, 2024
No chest pain
No sob
Objective Data
-
Vital Signs:
Vital Signs
Temp Pulse Resp BP Pulse Ox
97.9 F 71 16 125/63 97
01/09/24 07:30 01/09/24 08:10 01/09/24 07:30 01/09/24 08:10 01/09/24 07:30
I&O
01/08/24 01/09/24 01/10/24
06:59 06:59 06:59
Intake Total 600 / 600 960 / 960
Balance 600 / 600 960 / 960
--- NOTE | 2024-01-09 11:50 | CM ---
[facility] accepted patient for today. Pending insurance authorization. CM will update physician and patient family.
--- NOTE | 2024-01-09 12:25 | CM ---
Addendum entered by Madhavi Catherine 01/09/24 12:53:
patient son updated and in agreement. IMM to be emailed to patient son at [email or web address].
Original Note:
Patient auth is [id number] good for 6 days per [place] at insurance 01/08-01/13. Ambulance auth is [id number], acute care rehab. CM updated physician and will call patient son. CM will continue to follow for discharge planning needs. Please call
report [phone]/ fax [phone]. CM will continue to follow for discharge planning needs.
Plan; transfer to [place] today
--- NOTE | 2024-01-09 13:20 | W.DCSUMMARY ---
Discharge Summary
Discharge Data
Date of Admission: 01/08/24
Date of Discharge: 01/09/24
-
Pending Results: No
Hospital Course
87 years old female presented to the hospital after experiencing pain and right hip area. Patient was reaching out while sitting on toilet when she heard a pop in her right hip and started to have pain. No history of fall or trauma. She was
diagnosed with hip dislocation and that was reduced in the emergency room under sedation. Patient was evaluated by orthopedic surgeon. Orthopedic doctor discussed with the family options of surgical and nonsurgical approach. Family decided to
continue with conservative management and pain control. Patient was given Tylenol for pain and responded well. Orthopedic doctor provided instructions regarding activity. Patient remained hemodynamically stable and was discharged back to skilled
nursing facility in a stable condition.
Discharge Plan
-
Patient Disposition: Assisted/SNF
Discharge Diagnosis/Procedures: Right hip prosthetic joint recurrent dislocation s/p reduction
Diet: As tolerated
Additional Diets: TTWB with walker for activities, WBAT for transfers
Referrals:
Aidan Farias MD [Active] - in one month
Nelly Gracia MD [Family Provider] -
Prescriptions:
Continued
multivitamin Tablet
1 tab PO DAILY
amlodipine 2.5 mg tablet
2.5 mg PO DAILY
mirtazapine 15 mg tablet
15 mg PO HS
letrozole 2.5 mg tablet
2.5 mg PO DAILY
Zenpep 15,000-47,000 -63,000 unit capsule,delayed release(DR/EC)
3 cap PO MEALS
acetaminophen 325 mg tablet
650 mg PO Q6HPRN MDD 3000 mg/24 hrs PRN (Reason: mild pain/temp at or above 100F)
guaifenesin 100 mg/5 mL Liquid
200 mg PO Q4H PRN (Reason: cough)
sertraline 50 mg Tablet
50 mg PO DAILY
calcium carbonate-vitamin D3 600 mg-10 mcg (400 unit) Capsule
1 cap PO BID
docusate sodium 100 mg Capsule
100 mg PO BID Qty: 30 0RF
furosemide [Lasix] 20 mg tablet
10 mg PO DAILY Qty: 30 0RF
Xarelto 10 mg tablet
10 mg PO DAILY Qty: 30 0RF
clonazepam [Klonopin] 0.5 mg tablet
0.5 mg PO BID Qty: 6 0RF
Preparation H 0.25-14-74.9 % Ointment
1 applic [place] [facility] PRN (Reason: hemorrhoids)
guaifenesin [Mucinex] 600 mg Tablet Extended Release 12hr
600 mg PO Q12H PRN (Reason: congestion)
Discharge Orders:
Discharge Patient (As Directed); Ordered 01/09/24
Ordered By: Rigoberto Reeder
Discharge Date and Time
Discharge Date/Time: 01/09/24 15:57
Print Language: KHMER
[2024-01-09 14:32] VITALS: BP 134/71
== END 2024-01-09 15:57 | DRG 560 ==
LOC: 2 SOUTH 13:19
PROVIDERS: General Practice; Internal Medicine; ADMITTING PHYSICIAN Internal Medicine; ATTENDING PHYSICIAN Internal Medicine; EMERGENCY PHYSICIAN Emergency Medicine; FAMILY PHYSICIAN Internal Medicine; OTHER PHYSICIAN Orthopaedic Surgery
DX: T84.020A Dislocation of internal right hip prosthesis, initial encounter (principal); D62 Acute posthemorrhagic anemia; E87.1 Hypo-osmolality and hyponatremia; F03.94 Unspecified dementia, unspecified severity, with anxiety; M24.451 Recurrent dislocation, right hip; I10 Essential (primary) hypertension; D63.8 Anemia in other chronic diseases classified elsewhere; F32.A Depression, unspecified; M19.90 Unspecified osteoarthritis, unspecified site; R26.2 Difficulty in walking, not elsewhere classified; M81.0 Age-related osteoporosis without current pathological fracture; E78.00 Pure hypercholesterolemia, unspecified; J44.9 Chronic obstructive pulmonary disease, unspecified; K21.9 Gastro-esophageal reflux disease without esophagitis; X50.1XXA Overexertion from prolonged static or awkward postures, initial encounter; Y79.2 Prosthetic and other implants, materials and accessory orthopedic devices associated with adverse incidents; Y83.8 Other surgical procedures as the cause of abnormal reaction of the patient, or of later complication, without mention of misadventure at the time of the procedure; Y92.9 Unspecified place or not applicable; Z86.718 Personal history of other venous thrombosis and embolism; Z85.3 Personal history of malignant neoplasm of breast; Z90.13 Acquired absence of bilateral breasts and nipples; Z87.891 Personal history of nicotine dependence; Z79.01 Long term (current) use of anticoagulants; Z87.310 Personal history of (healed) osteoporosis fracture
CPT/HCPCS: 27265; 73501; 73502; 80048; 85027; 97110; 97116; 97163; 97166; 97530; 97535; 99152; 99285

== ENCOUNTER → 2024-01-11 09:58 | Outpatient (REF) | payer OTHER, SELFPAY ==
[2024-01-11 11:48] LABS: % Basophils 0.7 % (0-2); % Eosinophils 5.1 % (0-6); % Immature Granulocytes 0.3 % (0-0.5); % Lymphocytes 32.9 % (20.5-51.1); % Monocytes 10.1 % (1.7-9.3); % Neutrophils 50.9 % (42.2-75.2); Absolute Basophils 0.1 10^3/uL (0-0.2); Absolute Eosinophils 0.4 10^3/uL (0-0.7); Absolute Lymphocytes 2.3 10^3/uL (1.2-3.4); Absolute Monocytes 0.7 10^3/uL (0.1-0.6); Absolute Neutrophils 3.5 10^3/uL (1.4-6.5); Hematocrit 31.9 % (37.0-47.0); Hemoglobin 10.7 g/dL (12.0-16.0); Mean Corp Hgb Conc. 33.5 g/dL (33.0-37.0); Mean Corpuscular Hgb 27.1 pg (27.0-31.0); Mean Corpuscular Volume 80.8 fL (81.0-99.0); Mean Platelet Volume 9.3 fL (7.4-10.4); Nucleated Red Blood Cells % 0 %; Platelet Count 245 10^3/uL (130-400); Red Blood Cell Count 3.95 10^6/uL (4.20-5.40); Red Cell Dist. Width 15.5 % (11.5-14.5); White Blood Cell Count 6.9 10^3/uL (4.8-10.8)
[2024-01-11 12:06] LABS: ALT (SGPT) 36 U/L (0-35); AST (SGOT) 37 U/L (14-36); Albumin 3.3 g/dl (3.5-5.0); Alkaline Phosphatase 69 U/L (38-126); Blood Urea Nitrogen 29 mg/dl (7-17); Calcium 9.3 mg/dl (8.4-10.2); Carbon Dioxide 25 mmol/L (22-30); Chloride 100 mmol/L (98-107); Glucose 75 mg/dl (70-99); Potassium 4.4 mmol/L (3.5-5.1); Sodium 131 mmol/L (135-145); Total Bilirubin 0.5 mg/dl (0.2-1.3); Total Protein 5.9 g/dl (6.3-8.2); eGFR 53.85
== END ==
LOC: OLABWHC 09:58
PROVIDERS: ATTENDING PHYSICIAN Family Medicine
DX: E87.1 Hypo-osmolality and hyponatremia (principal); E78.00 Pure hypercholesterolemia, unspecified; D64.9 Anemia, unspecified; Z85.3 Personal history of malignant neoplasm of breast; M62.81 Muscle weakness (generalized); T84.020D Dislocation of internal right hip prosthesis, subsequent encounter
CPT/HCPCS: 36415; 80053; 85025